=== PATIENT | male | born 1995 | race Two or more races ===

== ENCOUNTER 2022-06-14 15:52 | Outpatient (CLI) | payer BC, SELFPAY ==
--- NOTE | ~2022-06-14 | XR_ITS ---
EXAM: XR lumbar spine 2-3V DATE: 06/14/2022 16:35 HISTORY: M54.6 - Pain in thoracic spine . COMPARISON: None available. FINDINGS: 5 nonrib-bearing lumbar-type vertebral bodies. Pedicles intact. 4 mm retrolisthesis of L5 on S1. Otherwise normal vertebral body alignment. Vertebral body heights preserved. Mild disc space n arrowing and marginal osteophytosis at L3-4 and L4-5. Normal facets and posterior elements. No fractu re or dislocation. IMPRESSION: Grade 1 retrolisthesis at L5-S1. Mild degenerative disc disease at L3-4 and L4-5. Reviewed, dictated and finalized at location K.
--- NOTE | ~2022-06-14 | XR_ITS ---
EXAM: XR thoracic spine 2V DATE: 06/14/2022 16:35 HISTORY: M54.6 - Pain in thoracic spine . COMPARISON: None available. FINDINGS: Vertebral body alignment intact. Vertebral body heights preserved. No disc space narrowing . No traumatic malalignment or fracture. Visualized lung parenchyma is clear. IMPRESSION: Normal thoracic spine radiograph findings. Reviewed, dictated and finalized at location K.
[2022-06-14 16:29] LABS: Basophils Percent Auto 0.5 % (0.2-1.2); Eosinophils Absolute Auto 0.2 K/mm3 (0-0.3); Hemoglobin 15.5 g/dL (14.0-18.0); Immature Granulocyte Absolute 0.02 K/mm3 (0.00-0.031); Immature Granulocyte Percent A 0.2 % (0-0.5); Lymphocytes Absolute Auto 1.67 K/mm3 (0.9-3.2); Lymphocytes Percent Auto 20.8 % (18.3-44.2); Mean Corpuscular HGB Conc 33.7 g/dl (32-36); Mean Corpuscular Hemoglobin 31.5 pg (26-34); Mean Corpuscular Volume 93.5 fl (80-100); Mean Platelet Volume 9.8 fl (7.4-10.4); Monocytes Absolute Auto 0.6 K/mm3 (0.1-0.6); Monocytes Percent Auto 7.5 % (2.6-8.5); Neutrophils Absolute Auto 5.4 K/mm3 (1.3-6.7); Platelet Count Result 334 k/mm3 (150-375); Red Blood Count 4.92 M/mm3 (4.6-6.20); Red Cell Distribution Width 12.5 % (11.5-14.5)
[2022-06-14 16:40] LABS: Alanine Aminotransferase 44 U/L (6-50); Albumin Level 4.6 g/dL (3.5-5.1); Alkaline Phosphatase 87 U/L (38-126); Anion Gap 10 mmol/L (8-16); Aspartate Amino Transferase 32 U/L (17-59); Bilirubin,Total 0.4 mg/dL (0.2-1.3); Blood Urea Nitrogen 13 mg/dL (9-20); Calcium 9.1 mg/dL (8.4-10.2); Carbon Dioxide 28 mmol/L (22-30); Chloride 101 mmol/L (98-107); Estimated Glomerular Filt Rate > 60; Glucose 94 mg/dL (65-110); Potassium 3.7 mmol/L (3.4-5.0); Sodium 139 mmol/L (137-145)
[2022-06-14 17:29] LABS: HIV 1/2 Ab P24 Ag Result Negative (Negative)
[2022-06-14 17:48] LABS: Folic Acid 9.4 ng/mL (2.76->20)
[2022-06-14 18:09] LABS: Vitamin D 25 Hydroxy 47.4 ng/mL
== END 2022-06-14 15:53 | disposition home or self-care (01) ==
LOC: ANHLAB 15:58
PROVIDERS: PCP Family Medicine; Visit Provider Family Medicine
DX: R53.83 Other fatigue (principal); M51.36 Other intervertebral disc degeneration, lumbar region
CPT/HCPCS: 36415; 72070; 72100; 80053; 82306; 82607; 82746; 84443; 85025; 86703; G0432

== ENCOUNTER 2023-04-04 15:47 | Outpatient (CLI) | payer OTHER, SELFPAY ==
[2023-04-04 16:10] LABS: Basophils Percent Auto 0.7 % (0.2-1.2); Eosinophils Absolute Auto 0.2 K/mm3 (0-0.3); Hematocrit 46.4 % (42.0-52.0); Hemoglobin 15.6 g/dL (14.0-18.0); Immature Granulocyte Absolute 0.02 K/mm3 (0.00-0.031); Immature Granulocyte Percent A 0.4 % (0-0.5); Lymphocytes Absolute Auto 1.17 K/mm3 (0.9-3.2); Lymphocytes Percent Auto 20.7 % (18.3-44.2); Mean Corpuscular HGB Conc 33.6 g/dl (32-36); Mean Corpuscular Hemoglobin 31.9 pg (26-34); Mean Corpuscular Volume 94.9 fl (80-100); Mean Platelet Volume 9.4 fl (7.4-10.4); Monocytes Absolute Auto 0.6 K/mm3 (0.1-0.6); Monocytes Percent Auto 10.8 % (2.6-8.5); Neutrophils Absolute Auto 3.6 K/mm3 (1.3-6.7); Neutrophils Percent Auto 64.4 % (45.5-73.1); Platelet Count Result 309 k/mm3 (150-375); Red Blood Count 4.89 M/mm3 (4.6-6.20); Red Cell Distribution Width 12.8 % (11.5-14.5); White Blood Count 5.7 K/mm3 (4.5-10.0)
[2023-04-04 16:36] LABS: Alanine Aminotransferase 58 U/L (6-50); Albumin Level 4.5 g/dL (3.5-5.1); Alkaline Phosphatase 64 U/L (38-126); Anion Gap 6 mmol/L (8-16); Aspartate Amino Transferase 66 U/L (17-59); Bilirubin,Total 0.7 mg/dL (0.2-1.3); Blood Urea Nitrogen 12 mg/dL (9-20); Calcium 9.1 mg/dL (8.4-10.2); Carbon Dioxide 31 mmol/L (22-30); Chloride 101 mmol/L (98-107); Estimated Glomerular Filt Rate > 60; Glucose 76 mg/dL (65-110); Potassium 3.7 mmol/L (3.4-5.0); Sodium 138 mmol/L (137-145)
[2023-04-04 17:02] LABS: Thyroid Stimulating Hormone 0.772 uIU/mL (0.465-4.680)
[2023-04-04 17:12] LABS: HIV 1/2 Ab P24 Ag Result Negative (Negative)
== END 2023-04-04 15:48 | disposition home or self-care (01) ==
PROVIDERS: PCP Family Medicine; Visit Provider Family Medicine
DX: R53.83 Other fatigue (principal); R61 Generalized hyperhidrosis; R63.4 Abnormal weight loss
CPT/HCPCS: 36415; 80053; 84443; 85025; 86703; G0432

== ENCOUNTER 2023-04-18 16:19 | Outpatient (CLI) | payer OTHER, SELFPAY ==
[2023-04-20 15:58] LABS: NIL 0.28 IU/mL; Quantiferon TB Plus, 1T NEGATIVE (NEGATIVE); TB1-NIL <0.00 IU/mL; TB2-NIL <0.00 IU/mL
== END 2023-04-18 16:20 | disposition home or self-care (01) ==
PROVIDERS: PCP Family Medicine; Visit Provider Family Medicine
DX: R61 Generalized hyperhidrosis (principal); R63.4 Abnormal weight loss
CPT/HCPCS: 36415; 86480